=== PATIENT | male | born 2000 | race American Indian/Alaskan Native ===

== ENCOUNTER 2020-10-30 16:43 | Emergency (ER) | payer SELFPAY ==
--- NOTE | 2020-10-30 17:26 | Event Note ---
ED Screening Note Date of service: 10/30/20 Time: 17:24 ED Screening Note: 20-year-old [id number] male patient presents to emergency department complaints of traumatic right thumb pain starting 2 days ago. Patient states he injured the thumb while he was playing basketball and accidentally collided with another player. Patient has a history of prior right thumb fracture requiring surgical hardware. He is concerned the hardware may be displaced. General: Awake, appropriately interactive, no acute distress. Neck: Supple. Full range of motion intact. Cardiovascular: Normal peripheral perfusion. Pulmonary: No respiratory distress. Patient is speaking normally without use of accessory muscles. Skin: No apparent rashes or lesions. Neurological: No facial asymmetry. Speech is clear. Follows commands. Patient is alert and oriented. Musculoskeletal: Tenderness to palpation along the radial aspect of the right hand with dorsal soft tissue swelling and overlying ecchymosis. Surgical scar present. Psych: Cooperative. Appropriate mood and affect. I have greeted and performed a focused rapid initial assessment of this patient. A comprehensive ED assessment and evaluation of the patient, analysis of all test results, and completion of the medical decision-making process will be conducted by additional ED providers. This initial assessment/diagnostic orders/clinical plan/treatment(s) is/are subject to change based on patients health status, clinical progression and re-assessment. Further treatment and workup at subsequent clinical provider's discretion. Patient/guardian urged not to elope from the ED as their condition may be serious if not clinically assessed and managed.
--- NOTE | 2020-10-30 17:48 | XRay Report ---
RIGHT HAND 4 VIEW(S) INDICATION / CLINICAL INFORMATION: thumb pain s/p injury; hx surgery to right thumb COMPARISON: None available. FINDINGS: BONES / JOINT(S): No acute fracture or subluxation. No significant arthritis. SOFT TISSUES: No significant abnormality. ADDITIONAL FINDINGS: None. Signer Name: Franky Lofton DO Signed: 10/30/2020 5:43 PM Workstation Name: [id number]
[2020-10-30] MEDS ORDERED: IBUPROFEN 800 MG TAB PO ONE (18:34)
--- NOTE | 2020-10-30 18:54 | Emergency Department Report ---
ED Upper Extremity Inj HPI - General Chief Complaint: Extremity Injury, Upper Stated Complaint: BROKEN THUMB Time Seen by Provider: 10/30/20 18:04 Source: patient Mode of arrival: Ambulatory Limitations: No Limitations - History of Present Illness Initial Comments: This is a 20-year-old male nontoxic, well nourished in appearance, no acute signs of distress presents to the ED with c/o of right thumb pain 1 day. Patient stated that while playing basketball the ball hit his finger. Patient denies any other injuries or trauma. Patient denies any numbness, tingling, fever, chills, nausea, vomiting, chest pain, shortness of breath, headache, stiff neck. Patient denies any joint swelling or joint redness. Patient stated has some decreased range of motion due to pain. Patient denies any allergies. MD Complaint: Injury to:: right, finger -: days(s) Other Extremity Injury: Fingers: Right Other Injuries: none Place: outdoors Severity scale (0 -10): 8 Improves With: immobilization Worsens With: movement of extremity Associated Symptoms: denies other symptoms. denies: weakness, numbness, neck pain, suspects foreign body, nausea/vomiting, heard/felt popping sensat - Related Data Previous Rx's Medication Instructions Recorded Last Taken Type Naproxen 500 mg PO Q12H PRN #12 tablet 10/30/20 Unknown Rx Allergies Allergy/AdvReac Type Severity Reaction Status Date / Time No Known Allergies Allergy Unverified 10/30/20 16:51 ED Review of Systems ROS: Stated complaint: BROKEN THUMB Other details as noted in HPI Comment: All other systems reviewed and negative Constitutional: denies: chills, fever Eyes: denies: eye pain, eye discharge, vision change ENT: denies: ear pain, throat pain Respiratory: denies: cough, shortness of breath, wheezing Cardiovascular: denies: chest pain, palpitations Endocrine: no symptoms reported Gastrointestinal: denies: abdominal pain, nausea, diarrhea Genitourinary: denies: urgency, dysuria Musculoskeletal: denies: back pain, joint swelling, arthralgia Skin: denies: rash, lesions Neurological: denies: headache, weakness, paresthesias Psychiatric: denies: anxiety, depression Hematological/Lymphatic: denies: easy bleeding, easy bruising ED Past Medical Hx - Past Medical History Hx Asthma: Yes - Surgical History Additional Surgical History: HAND - Medications Home Medications: Home Medications Medication Instructions Recorded Confirmed Last Taken Type Naproxen 500 mg PO Q12H PRN #12 tablet 10/30/20 Unknown Rx ED Physical Exam - General Limitations: No Limitations General appearance: alert, in no apparent distress - Head Head exam: Present: atraumatic, normocephalic - Eye Eye exam: Present: normal appearance - Neck Neck exam: Present: normal inspection, full ROM - Respiratory Respiratory exam: Absent: respiratory distress - Cardiovascular Cardiovascular Exam: Present: regular rate - Extremities Exam Extremities exam: Present: full ROM, tenderness, normal capillary refill. Absent: joint swelling - Expanded Upper Extremity Exam Right General: Present: normal inspection Shoulder Exam: Present: normal inspection, full ROM. Absent: tenderness, swelling Upper Arm exam: Present: normal inspection, full ROM. Absent: tenderness, swelling Elbow exam: Present: normal inspection, full ROM. Absent: tenderness, swelling Forearm Wrist exam: Present: normal inspection, full ROM. Absent: tenderness, swelling, abrasion, laceration, ecchymosis, deformity, crepidus, dislocation, erythema, tenderness over anatomical snuff box, pain with axial thumb loading Hand Wrist exam: Present: full ROM, tenderness, swelling, ecchymosis. Absent: abrasion, laceration, deformity, crepidus, dislocation, erythema, amputation, nail avulsion, subungual hematoma Hand L/R Front: 1 - Positive: other (Pain and swelling here) Vascular: Present: normal capillary refill. Absent: vascular compromise (Neur ovascular within normal limits) - Back Exam Back exam: Present: normal inspection, full ROM - Neurological Exam Neurological exam: Present: alert, oriented X3, normal gait - Psychiatric Psychiatric exam: Present: normal affect, normal mood - Skin Skin exam: Present: warm, dry, intact, normal color. Absent: rash ED Course Vital Signs 10/30/20 10/30/20 16:52 18:41 Temperature 98.3 F Pulse Rate 50 L Respiratory 18 16 Rate Blood Pressure 126/76 O2 Sat by Pulse 98 Oximetry - Reevaluation(s) Reevaluation #1: 10/30/20 18:52 Patient is speaking in full sentences with no signs of distress noted. ED Medical Decision Making - Radiology Data [facility] [address] [place] [address] XRay Report Signed Patient: JUSTINA GEORGE MR#: [id number] : 2000 Acct:[id number] Age/Sex: 20 / M ADM Date: 10/30/20 Loc: ED Attending Dr: Ordering Physician: DURGA URRUTIA Date of Service: 10/30/20 Procedure(s): XR hand 3+V RT Accession Number(s): [id number] cc: DURGA URRUTIA Fluoro Time In Minutes: RIGHT HAND 4 VIEW(S) INDICATION / CLINICAL INFORMATION: thumb pain s/p injury; hx surgery to right thumb COMPARISON: None available. FINDINGS: BONES / JOINT(S): No acute fracture or subluxation. No significant arthritis. SOFT TISSUES: No significant abnormality. ADDITIONAL FINDINGS: None. Signer Name: Franky Gómez DO Signed: 10/30/2020 5:43 PM Workstation Name: [id number] Transcribed By: DARI Dictated By: FRANKY GÓMEZ DO Electronically Authenticated By: FRANKY GÓMEZ DO Signed Date/Time: 10/30/201742 DD/ 41 TD/TT: - Medical Decision Making This is a 20-year-old male that presents with right thumb strain. Patient is stable and was examined by me. I referred patient to an orthopedic doctor for further evaluation for possible MRI. X-ray has been obtained and dictated by the radiologist. Patient is notified of the x-ray report with noted by the patient. Patient does have normal range of motion with some tenderness and no joint swelling. no joint redness or swelling. Not warm to touch. No signs of cellulites present. Patient received a frog metal splint to right thumb for pain comfort. Post splint assessment: neurovasular intact; normal cap refill <2 second; normal sensation; denies decreaed sensation; normal ROM of digits. Patient was instructed to RICE therapy. Patient received Motrin for pain. Patient is discharged with naproxen. At time of discharge, the patient does not seem toxic or ill in appearance. No acute signs of distress noted. Patient agrees to discharge treatment plan of care. No further questions noted by the patient. Critical care attestation.: If time is entered above; I have spent that time in minutes in the direct care of this critically ill patient, excluding procedure time. ED Disposition Clinical Impression: Strain of right thumb Disposition: DC-01 TO HOME OR SELFCARE Is pt being admited?: No Does the pt Need Aspirin: No Condition: Stable Instructions: RICE Therapy for Routine Care of Injuries, [id number], Thumb Sprain Additional Instructions: Follow-up with a orthopedic doctor in 3-5 days or if symptoms worsen and continue return to emergency room as soon as possible. No physical activity that extremity until cleared by orthopedic doctor Prescriptions: Naproxen 500 mg PO Q12H PRN #12 tablet PRN Reason: Pain , Severe (7-10) Referrals: PRIMARY CAREMD [Referring] - 3-5 Days RUPESH DAVIS MD [Staff Physician] - 3-5 Days Forms: Work/School Release Form(ED) Time of Disposition: 18:55
[2020-10-31 06:53] VITALS: BP 156/89
== END 2020-10-30 19:45 | disposition home or self-care (01) ==
LOC: ED 16:43
DX: S56.011A Strain of flexor muscle, fascia and tendon of right thumb at forearm level, initial encounter (principal); J45.909 Unspecified asthma, uncomplicated; Z79.899 Other long term (current) drug therapy; X58.XXXA Exposure to other specified factors, initial encounter; Y93.67 Activity, basketball; Y92.89 Other specified places as the place of occurrence of the external cause; Y99.8 Other external cause status